=== PATIENT | male | born 1995 | race Caucasian/White ===

== ENCOUNTER 2017-08-05 00:39 | Emergency (ER) | payer SELFPAY ==
[2017-08-05 01:07] VITALS: BP 117/66; PULSE 78; RESP 18; TEMP 98.1; O2SAT 99
--- NOTE | 2017-08-05 01:59 | ED PDOC ---
Arrival/HPI - General Chief Complaint: Eye Problem Time Seen by Provider: 08/05/17 01:14 - History of Present Illness Narrative History of Present Illness (Text): 22 y/o M c no PMHx p/w R eye pain x 6 days. Patient states his R eye is with pain, radiates to the R ear, progressively worsening every day. He states he feels better in the morning and as the day progresses, the pain increases and then it improves again when he sleeps for the night. He denies vision change, fever, stiff neck, confusion, vomiting, discharge, halos, trauma, contact lens use. He went to [facility] who instructed patient to follow up with Ophtho. Past Medical History - Travel History If Yes, travel location?: [place] - Cardiac Hx Cardiac Disorders: No - Pulmonary Hx Respiratory Disorders: No - Neurological Hx Neurological Disorder: No - HEENT Hx HEENT Disorder: No - Renal Hx Renal Disorder: No - Endocrine/Metabolic Hx Endocrine Disorders: No - Hematological/Oncological Hx Blood Disorders: No - Integumentary Hx Dermatological Disorder: No - Musculoskeletal/Rheumatological Hx Musculoskeletal Disorders: No - Gastrointestinal Other/Comment: lactose intolerant - Genitourinary/Gynecological Hx Genitourinary Disorders: No - Psychiatric Hx Psychophysiologic Disorder: No Hx Substance Use: No - Surgical History Hx Appendectomy: Yes Other/Comment: acu puncture Family/Social History Family/Social History: No Known Family HX Smoking Status: Former Smoker Hx Alcohol Use: Yes Frequency of alcohol use: Socially Hx Substance Use: No Allergies/Home Meds Allergies/Adverse Reactions: Allergies No Known Allergies Allergy (Verified 08/05/17 01:06) Review of Systems - Physician Review All systems were reviewed & negative as marked: Yes - Review of Systems Constitutional: absent: Fevers Gastrointestinal: absent: Vomiting Physical Exam - Physical Exam Narrative Physical Exam (Text): Gen: NAD Head: NC Eyes: PERRL, EOMI, no injection, no discharge, no hyphema, no corneal abrasion ( stained), Negative Logan sign, no middilated pupil, no cloudy cornea. ENT: TMs normal bilaterally. No mastoid tenderness. Neck: No stiffness. CV: Temporal arteries palpable bilaterally Vital Signs Temp Pulse Resp BP Pulse Ox 08/05/17 01:06 98.1 F 78 18 117/66 99 Medical Decision Making ED Course and Treatment: Advised ophtho follow up. Antibiotic eye drops empirically. - Medication Orders Current Medication Orders: Discontinued Medications Ciprofloxacin (Ciloxan 0.3% Ophth Soln) 2 drop OD STAT STA Stop: 08/05/17 02:13 Ibuprofen (Motrin Tab) 600 mg PO STAT STA Stop: 08/05/17 02:07 Disposition/Present on Arrival - Present on Arrival Any Indicators Present on Arrival: No History of DVT/PE: No History of Uncontrolled Diabetes: No Urinary Catheter: No History of Decub. Ulcer: No History Surgical Site Infection Following: None - Disposition Have Diagnosis and Disposition been Completed?: Yes Diagnosis: Eye pain Disposition: HOME/ ROUTINE Disposition Time: 01:56 Patient Plan: Discharge Patient Problems: Current Active Problems Problem Status Onset Eye pain Acute Condition: STABLE Discharge Instructions (ExitCare): Slit Lamp Examination Prescriptions: Polymyxin/Trimethoprim Sulfate [Polytrim Ophth Soln] 1 drop OU Q3H #1 bottle Referrals: Alo Mc MD [Staff Provider] - Follow up with primary Forms: [employer] ([place]), SCHOOL NOTE
[2017-08-05] MEDS ORDERED: Ciprofloxacin 0.3% OPTH SOLN OD STA (02:12)
== END 2017-08-05 02:25 | disposition home or self-care (01) ==
LOC: ED 00:39
DX: H57.11 Ocular pain, right eye (principal); Z87.891 Personal history of nicotine dependence

== ENCOUNTER 2018-05-28 13:24 | Emergency (ER) | payer MEDICAID ==
[2018-05-28] MEDS ORDERED: Albuterol 0.083% Inhal Sol (2.5 mg/3 mL) UD INH STA (15:09)
--- NOTE | 2018-05-28 15:22 | ED PDOC ---
Arrival/HPI - General Chief Complaint: Cough, Cold, Congestion Time Seen by Provider: 05/28/18 13:26 Historian: Patient - History of Present Illness Narrative History of Present Illness (Text): 05/28/18 15:10 23yo male with no pmhx who present with complaint of nonproductive cough x days. States is usually worse at night with tightness and intermittently productive. She smokes tobacco. States she was given hand inhaler for 3years the last time she was diagnosed with pneumonia, but not sure if he is Asthmatic. Denies fever, SOB, diaphoresis, chest pain, any other complaint. Past Medical History - Provider Review Nursing Documentation Reviewed: Yes - Travel History If Yes, travel location?: returned 05/24/18 from [place] - Cardiac Hx Cardiac Disorders: No - Pulmonary Hx Respiratory Disorders: No Hx Pneumonia: Yes - Neurological Hx Neurological Disorder: No - HEENT Hx HEENT Disorder: No - Renal Hx Renal Disorder: No - Endocrine/Metabolic Hx Endocrine Disorders: No - Hematological/Oncological Hx Blood Disorders: No - Integumentary Hx Dermatological Disorder: No - Musculoskeletal/Rheumatological Hx Musculoskeletal Disorders: No - Gastrointestinal Other/Comment: lactose intolerant - Genitourinary/Gynecological Hx Genitourinary Disorders: No - Psychiatric Hx Psychophysiologic Disorder: No Hx Substance Use: No - Surgical History Hx Appendectomy: Yes Other/Comment: acu puncture - Anesthesia Hx Anesthesia: Yes Hx Anesthesia Reactions: No Hx Malignant Hyperthermia: No Family/Social History - Physician Review Nursing Documentation Reviewed: Yes Family/Social History: Unknown Family HX Smoking Status: Current Some Days Smoker Hx Alcohol Use: Yes Hx Substance Use: No Allergies/Home Meds Allergies/Adverse Reactions: Allergies No Known Allergies Allergy (Verified 08/05/17 01:06) Review of Systems - Physician Review All systems were reviewed & negative as marked: Yes - Review of Systems Constitutional: Normal Eyes: Normal ENT: Normal Respiratory: Cough, Sputum. absent: Wheezing Cardiovascular: Normal Gastrointestinal: Normal Genitourinary Male: Normal Musculoskeletal: Normal Skin: Normal Neurological: Normal Endocrine: Normal Hemo/Lymphatic: Normal Psychiatric: Normal Physical Exam Vital Signs Reviewed: Yes Vital Signs Temp Pulse Resp BP Pulse Ox 05/28/18 13:24 97.8 F 107 H 18 133/79 99 Temperature: Afebrile Blood Pressure: Normal Pulse: Regular Respiratory Rate: Normal Appearance: Positive for: Well-Appearing, Non-Toxic, Comfortable Pain Distress: None Mental Status: Positive for: Alert and Oriented X 3 - Systems Exam Head: Present: Atraumatic, Normocephalic Pupils: Present: PERRL Extroacular Muscles: Present: EOMI Conjunctiva: Present: Normal Mouth: Present: Moist Mucous Membranes Neck: Present: Normal Range of Motion Respiratory/Chest: Present: Clear to Auscultation, Good Air Exchange, Other (Coarse). No: Respiratory Distress, Accessory Muscle Use, Wheezes, Decreased Breath Sounds, Rales, Retracting, Rhonchi Cardiovascular: Present: Regular Rate and Rhythm, Normal S1, S2. No: Murmurs Abdomen: No: Tenderness, Distention, Peritoneal Signs Back: Present: Normal Inspection Upper Extremity: Present: Normal Inspection. No: Cyanosis, Edema Lower Extremity: Present: Normal Inspection. No: Edema Neurological: Present: GCS=15, CN II-XII Intact, Speech Normal Skin: Present: Warm, Dry, Normal Color. No: Rashes Psychiatric: Present: Alert, Oriented x 3, Normal Insight, Normal Concentration Medical Decision Making ED Course and Treatment: 05/28/18 19:03 23yo male in ED for cough. He was not in any distress. Afebrile. Chest xray - NAD He was treated with albuterol, prednisone and antitussive in ED He was counselled on smoking cessation DC home with antitussive and albuterol Referred to the clinic - RAD Interpretation Radiology Orders: 05/28/18 14:03 CHEST TWO VIEWS (PA/LAT) [RAD] Stat Disposition/Present on Arrival - Present on Arrival Any Indicators Present on Arrival: No History of DVT/PE: No History of Uncontrolled Diabetes: No Urinary Catheter: No History of Decub. Ulcer: No History Surgical Site Infection Following: None - Disposition Have Diagnosis and Disposition been Completed?: Yes Diagnosis: Cough Disposition: HOME/ ROUTINE Disposition Time: 15:25 Patient Plan: Discharge Condition: STABLE Discharge Instructions (ExitCare): Cough in Adults, Acute Bronchitis, Adult (DC) Additional Instructions: Follow up with your Doctor Return to ED for any new or worsening symptoms Prescriptions: RX: Albuterol HFA [Ventolin HFA 90 mcg/actuation (8 g)] 2 puff IH [id number] #1 puff Benzonatate [Tessalon Perle] 100 mg PO TID #20 capsule Referrals: PCP,NO [Primary Care Provider] - Follow up with primary Roxana Ward MD [Medical Doctor] - Follow up with primary Forms: [employer] ([place]ian)
--- NOTE | 2018-05-28 15:25 | RAD ---
Date of service: 05/28/2018 HISTORY: cough COMPARISON: No prior. TECHNIQUE: Chest PA and lateral FINDINGS: LUNGS: No active pulmonary disease. PLEURA: No significant pleural effusion identified. No pneumothorax apparent. CARDIOVASCULAR: No aortic atherosclerotic calcification present. Normal cardiac size. No pulmonary vascular congestion. OSSEOUS STRUCTURES: No significant abnormalities. VISUALIZED UPPER ABDOMEN: Normal. OTHER FINDINGS: None. IMPRESSION: No active disease.
[2018-05-28 15:41] VITALS: BP 125/73; PULSE 72; RESP 19; TEMP 98
[2018-05-28 15:43] VITALS: O2SAT 100
== END 2018-05-28 15:42 | disposition home or self-care (01) ==
LOC: ED 13:24
DX: R05 Cough (principal)